=== PATIENT | female | born 2000 | race Caucasian/White ===

== ENCOUNTER 2022-02-04 11:21 | Emergency (ER) | payer BC, SELFPAY ==
[2022-02-04 11:30] VITALS: BP 154/70; PULSE 97; RESP 18; TEMP 36.7; O2SAT 100
--- NOTE | 2022-02-04 12:06 | ED.NAVMDI ---
HPI - Nausea/Vomiting/Diarrhea General Chief complaint: Nausea/Vomiting/Diarrhea Stated complaint: abd n/v/d Time Seen by Provider: 02/04/22 12:06 Source: patient and RN notes reviewed Mode of arrival: ambulatory Limitations: no limitations History of Present Illness HPI Narrative: 21-year-old female presents to the [facility] with complaints of generalized abdominal pain, nausea, vomiting for 1 week. Patient states she has a history of chronic nausea but usually Zofran works. In states that she has been vomiting and unable to keep water down for the last week. States that she feels dehydrated and thinks she needs IV fluids. Related Data Home Medications Medication Instructions Recorded Confirmed buspirone 10 mg tablet mg 02/04/22 buspirone 30 mg tablet mg 02/04/22 escitalopram oxalate 20 mg tablet mg 02/04/22 losartan 25 mg tablet mg 02/04/22 lurasidone 20 mg tablet (Latuda) mg 02/04/22 lurasidone 80 mg tablet (Latuda) mg 02/04/22 mometasone-formoterol HFA 100 inhalation 02/04/22 mcg-5 mcg/actuation aerosol inhaler (Dulera) ondansetron HCl 8 mg tablet 8 mg PO Q12H PRN Abdominal 02/04/22 02/04/22 Discomfort quetiapine 150 mg tablet,extended mg PO 02/04/22 release 24 hr trazodone 100 mg tablet mg 02/04/22 Allergies Allergy/AdvReac Type Severity Reaction Status Date / Time No Known Allergies Allergy Unverified 01/09/18 13:44 Review of Systems Review of Systems: All systems reviewed & are unremarkable except as noted in HPI and below Constitutional: Constitutional: Reports no additional constitutional complaints, Denies chills and Denies fever(s) Eyes: Eyes: Reports no additional eye complaints ENT: Reports system reviewed and no additional complaints, except as documented Cardiovascular: Cardiovascular: Reports no additional cardiovascular complaints Respiratory: Respiratory: Reports no additional respiratory complaints Gastrointestinal: Gastrointestinal: Reports as per HPI, Reports abdominal pain, Reports diarrhea, Reports nausea and Reports vomiting Musculoskeletal: Musculoskeletal: Reports no additional musculoskeletal complaints Integumentary/Breasts: Skin/Breast: Reports system reviewed and no additional complaints, except as docu Neurologic: Reports system reviewed and no additional complaints, except as documented Psychiatric: Psychiatric: Reports no additional psychiatric complaints Allergic/Immunologic: Allergic/Immunologic: Reports no additional allergic/immunologic complaints [facility] Past Medical History Medical History (Updated 02/04/22 @ 20:38 by Alis Gibson APRN) Anxiety and depression Comments At the time of my signature, I reviewed and agree with the nursing past medical, surgical, social, and family history. There is no relevant family history pertinent to the patient complaint. Exam Const: General: healthy appearing, no acute distress, alert and well nourished Nutritional Appearance: well nourished and obese morbidly obese Orientation/consciousness: patient oriented x3 Limitations: no limitations HENMT: Head: normal to inspection Ears: external ears normal, TM's normal bilaterally and EAC's normal Face/Nose/Sinus: Normal external nose present and Normal nares present Mouth: Yes Normal oral and palatal mucosa present, Yes lip normal and Yes moist mucous membranes Throat: posterior oropharynx normal and uvula midline Eyes: General: appearance normal, both eyes and all related structures Conjunctivae: conjunctivae normal Pupils: Equal, round and reactive pupils present Neck: Neck: normal visual inspection, no lymphadenopathy and no meningeal signs Chest: Chest palpation & inspection: normal inspection of the chest Resp: Effort & Inspection: normal respiratory effort and no use of accessory muscles Auscultation: clear to auscultation bilaterally, no crackles, no rales, no rhonchi and no wheezes Cardio: Rate: regular rate Rhythm: regular rhythm GI:
--- NOTE | 2022-02-04 12:18 | PC.NURSE ---
Attempt to lucy report, no pick up man
== END 2022-02-04 12:21 | disposition short-term general hospital (02) ==
LOC: EXPCOLL 11:24
PROVIDERS: Emergency Provider Nurse Practitioner
DX: R11.2 Nausea with vomiting, unspecified (principal); R19.7 Diarrhea, unspecified
CPT/HCPCS: 99212; G0463

== ENCOUNTER 2022-02-04 12:31 | Emergency (ER) | payer BC, SELFPAY ==
--- NOTE | ~2022-02-04 | CT_ITS ---
EXAMINATION: CT abdomen pelvis w con DATE: 02/04/2022 15:13 INDICATION: Umbilical abdominal pain TECHNIQUE: Computed tomography (CT) of the abdomen and pelvis was performed with 100 cc Omnipaque 350 intravenous contrast. The dose-length product was 1616.53 mGy-cm. Automated exposure control and ite rative reconstruction technique were employed. COMPARISON: No prior studies for comparison. FINDINGS: Lung bases are unremarkable. Heart size normal. No significant pleural or pericardial effus ion. No significant vascular abnormality. No lymphadenopathy. Fatty infiltration of the liver. The spleen, pancreas, adrenal glands and kidneys are unremarkable. N onobstructive bowel pattern. No free air or free fluid. Gallbladder is present. No evidence for diver ticulitis or appendicitis. No acute osseous abnormality. Normal appendix. No abnormal pelvic masses o r fluid collections. IMPRESSION: 1. No acute abdominal abnormality. Reviewed, dictated and finalized at location B.
[2022-02-04 12:34] VITALS: BP 153/80; PULSE 93; RESP 14; TEMP 36.3; O2SAT 99
[2022-02-04 13:20] LABS: Basophils Percent Auto 0.3 % (0.2-1.2); Eosinophils Absolute Auto 0.1 K/mm3 (0-0.3); Eosinophils Percent Auto 0.8 % (0-4.4); Hematocrit 34.3 % (37.0-47.0); Hemoglobin 10.6 g/dL (12.0-15.0); Immature Granulocyte Absolute 0.04 K/mm3 (0.00-0.031); Immature Granulocyte Percent A 0.4 % (0-0.5); Lymphocytes Absolute Auto 3.01 K/mm3 (0.9-3.2); Lymphocytes Percent Auto 27.9 % (18.3-44.2); Mean Corpuscular HGB Conc 30.9 g/dl (32-36); Mean Corpuscular Hemoglobin 22.9 pg (26-34); Mean Corpuscular Volume 74.2 fl (80-100); Mean Platelet Volume 11.2 fl (7.4-10.4); Monocytes Absolute Auto 0.4 K/mm3 (0.1-0.6); Neutrophils Absolute Auto 7.2 K/mm3 (1.3-6.7); Neutrophils Percent Auto 66.6 % (45.5-73.1); Platelet Count Result 356 k/mm3 (150-375); Red Blood Count 4.62 M/mm3 (4.2-5.4); Red Cell Distribution Width 17.5 % (11.5-14.5); White Blood Count 10.8 K/mm3 (4.5-10.0)
[2022-02-04 13:31] LABS: Alanine Aminotransferase 26 U/L (6-35); Albumin Level 4.5 g/dL (3.5-5.1); Alkaline Phosphatase 91 U/L (38-126); Anion Gap 9 mmol/L (8-16); Aspartate Amino Transferase 29 U/L (14-36); Bilirubin,Total 0.4 mg/dL (0.2-1.3); Blood Urea Nitrogen 10 mg/dL (7-17); Calcium 9.1 mg/dL (8.4-10.2); Carbon Dioxide 24 mmol/L (22-30); Chloride 104 mmol/L (98-107); Estimated CRCL calculation 168 ml/min; Estimated Glomerular Filt Rate > 60; Glucose 107 mg/dL (65-110); Lipase 112 U/L (23-300); Potassium 4.3 mmol/L (3.4-5.0); Sodium 137 mmol/L (137-145)
[2022-02-04 13:32] LABS: Appearance Urine Slightly Cloudy (Clear); Bilirubin Urine Negative (Negative); Blood Urine Negative (Negative); Color Urine Light Yellow (Yellow); Glucose Urine UA Negative (Negative); Ketones Urine Negative (Negative); Leukocyte Esterase Ur 1+ LEU/UL (Negative); Nitrate Urine Negative (Negative); Protein Urine Negative (Negative); Specific Grav Ur 1.015 (1.001-1.035); Urobilinogen Urine 0.2 mg/dL (<2.0); pH Urine 6.5 (5.0-9.0)
[2022-02-04 13:36] LABS: Bacteria Urine Trace /hpf; Mucus Urine Rare /lpf; RBC Urine 0-2 /hpf (0-2); Squamous Epithelial Cell Urine Many /hpf (Few); WBC Urine 0-3 /hpf
[2022-02-04 13:47] LABS: Add Urine Microscopic? YES
[2022-02-04 14:02] LABS: Anisocytosis 1+ (NORMAL); Hypochromasia 1+ (NORMAL); Platelet Estimate Adequate (Adequate); Poikilocytosis 1+ (NORMAL); Schistocytes None Seen (NORMAL)
--- NOTE | 2022-02-04 14:33 | ED.ABDPAIN ---
HPI - Abdominal Pain General Chief Complaint: Abdominal Pain Stated Complaint: N/V/D, abd pain Time Seen by Provider: 02/04/22 13:56 History of Present Illness HPI narrative: 21-year-old female history of hypertension, IBS and heavy THC use presents to the emergency room for upper abdominal pain, nausea vomiting and diarrhea x1 week. Patient states she regularly takes Zofran for her nausea. Reports is able to keep fluids down and urinate on a regular basis. States diarrhea began this morning. Relates that the upper abdominal pain might be due to the multiple episodes of nonbilious and nonbloody vomiting. Denies fevers. Related Data Home Medications Medication Instructions Recorded Confirmed buspirone 10 mg tablet mg 02/04/22 buspirone 30 mg tablet mg 02/04/22 escitalopram oxalate 20 mg tablet mg 02/04/22 losartan 25 mg tablet mg 02/04/22 lurasidone 20 mg tablet (Latuda) mg 02/04/22 lurasidone 80 mg tablet (Latuda) mg 02/04/22 mometasone-formoterol HFA 100 inhalation 02/04/22 mcg-5 mcg/actuation aerosol inhaler (Dulera) ondansetron HCl 8 mg tablet 8 mg PO Q12H PRN Abdominal 02/04/22 02/04/22 Discomfort quetiapine 150 mg tablet,extended mg PO 02/04/22 release 24 hr trazodone 100 mg tablet mg 02/04/22 Allergies Allergy/AdvReac Type Severity Reaction Status Date / Time No Known Allergies Allergy Unverified 01/09/18 13:44 Review of Systems Review of Systems: CONSTITUTIONAL: Denies fever, chills, or sweats. EYES: Denies visual changes, redness, or discharge. ENT: Denies rhinorrhea, congestion, sore throat, or otalgia. CARDIOVASCULAR: Denies chest pain, palpitations, or edema. RESPIRATORY: Denies cough or dyspnea. GASTROINTESTINAL: Reports abdominal pain, nausea, vomiting, and diarrhea. GENITOURINARY: Denies dysuria or hematuria. SKIN: Denies rash or itching. MUSCULOSKELETAL: Denies back pain, joint pain, or myalgia. NEUROLOGIC: Denies headache, numbness, dizziness, or weakness. PSYCHIATRIC: Denies anxiety or depression. Exam Narrative: GENERAL: Well-appearing, well-nourished, no physical limitations, and in no acute distress. HEAD: Normocephalic, atraumatic. EYES: Conjunctivae normal, PERRLA and EOMI. CHEST: Clear to auscultation. No respiratory distress. No wheezes rales or rhonchi. HEART: Regular rate and rhythm. No murmur heard. Normal peripheral pulses. ABDOMEN: Soft, nontender, morbidly obese, nondistended, normal active bowel sounds. BACK: No CVA tenderness EXTREMITIES: Normal range of motion. No edema. No clubbing or cyanosis SKIN: Warm, dry, no rash. No noted wounds NEURO: No focal deficits. Alert and oriented x3. MAEW. CN's II-XI intact bilaterally, normal gait PSYCH: Cooperative. Normal mood and affect. Course Vital Signs Vital signs: Vital Signs Temperature 36.3 C L 02/04/22 12:34 Pulse Rate 93 02/04/22 12:34 Respiratory Rate 14 02/04/22 12:34 Blood Pressure 153/80 H 02/04/22 12:34 Pulse Oximetry 99 02/04/22 12:34 Oxygen Delivery Room Air 02/04/22 12:34 Temperature 36.3 C L 02/04/22 12:34 Pulse Rate 93 02/04/22 12:34 Respiratory Rate 14 02/04/22 12:34 Blood Pressure 153/80 H 02/04/22 12:34 Pulse Oximetry 99 02/04/22 12:34 Oxygen Delivery Room Air 02/04/22 12:34 MDM - Abdominal Pain Lab Data Result diagrams: 02/04/22 13:10 02/04/22 13:10 Labs: Lab Results 02/04/22 02/04/22 02/04/22 Range/Units 13:09 13:10 13:10 WBC 10.8 H (4.5-10.0) K/mm3 RBC 4.62 (4.2-5.4) M/mm3 Hgb 10.6 L (12.0-15.0) g/dL Hct 34.3 L (37.0-47.0) % MCV 74.2 L (80-100) fl MCH 22.9 L (26-34) pg MCHC 30.9 L (32-36) g/dl RDW 17.5 H (11.5-14.5) % Plt Count 356 (150-375) k/mm3 MPV 11.2 H (7.4-10.4) fl Immature Gran % (Auto) 0.4 (0-0.5) % Neut % (Auto) 66.6 (45.5-73.1) % Lymph % (Auto) 27.9 (18.3-44.2) % [place] % (Auto) 4.0 (2.6-8.5) % Eos % (Auto) 0.8 (0-4
[2022-02-04] MEDS: DICYCLOMINE HCL INJ 20 MG/2 ML VIAL IM (14:48)
[2022-02-04] MEDS: PANTOPRAZOLE SODIUM IV 40 MG VIAL IV PUSH (14:52)
[2022-02-04] MEDS: SODIUM CHLORIDE 0.9% IV 1,000 ML 999 ML IV CONT (14:52)
[2022-02-04] MEDS: ONDANSETRON INJ 4 MG/2 ML VIAL IV PUSH (14:52)
[2022-02-04 16:38] VITALS: BP 160/99; PULSE 92; RESP 16; TEMP 36.8; O2SAT 99
== END 2022-02-04 16:39 | disposition home or self-care (01) ==
PROVIDERS: Emergency Medicine; Emergency Provider Nurse Practitioner Family
DX: K52.9 Noninfective gastroenteritis and colitis, unspecified (principal)
CPT/HCPCS: 36415; 74177; 80053; 81001; 81025; 83690; 85025; 96361; 96372; 96374; 96375; 99284; C9113; J0500; J2405; J7030; Q9967

== ENCOUNTER 2023-10-24 06:21 | Emergency (ER) | payer BC, SELFPAY ==
--- NOTE | ~2023-10-24 | XR_ITS ---
Clinical Indication: Chest pain PA and lateral views of the chest: Comparison: None Findings: The lungs are clear, without evidence of focal consolidation or pleural effusion. Cardiome diastinal silhouette is within normal limits. Bones and soft tissues are unremarkable. Impression: Normal chest. Reviewed, dictated and finalized at location . Impression: Normal chest.
--- NOTE | 2023-10-24 06:24 | ECG_ITS ---
Test Date: 2023-10-24 07:15:01 Measurements Intervals [place] Rate: 75 P: 15 [place]: 165 QRS: 5 QRSD: 105 T: 16 QT: 346 QTc: 386 Interpretive Statements SINUS RHYTHM VOLTAGE CRITERIA FOR LLEFT VENTRICULAR HYPERTROPHY INFERIOR INFARCT, AGE INDETERMINATE ABNORMAL ECG No previous ECG available for comparison Electronically Signed On 10-24-2023 11:52:21 CDT by Rosales Klein D.O.
[2023-10-24 06:25] VITALS: BP 123/94; PULSE 88; RESP 21; TEMP 36.4; O2SAT 95
[2023-10-24 06:33] VITALS: PULSE 88; O2SAT 95
[2023-10-24] MEDS: ASPIRIN 81 MG CHEWABLE TABLET 324 MG PO (06:53)
[2023-10-24 06:54] LABS: Basophils Absolute Auto 0.1 K/mm3 (0.0-0.1); Basophils Percent Auto 0.5 % (0.2-1.2); Eosinophils Absolute Auto 0.1 K/mm3 (0-0.3); Eosinophils Percent Auto 0.8 % (0-4.4); Hematocrit 39.2 % (37.0-47.0); Hemoglobin 12.1 g/dL (12.0-15.0); Immature Granulocyte Absolute 0.04 K/mm3 (0.00-0.031); Immature Granulocyte Percent A 0.4 % (0-0.5); Lymphocytes Absolute Auto 3.13 K/mm3 (0.9-3.2); Lymphocytes Percent Auto 29.5 % (18.3-44.2); Mean Corpuscular HGB Conc 30.9 g/dl (32-36); Mean Corpuscular Hemoglobin 25.1 pg (26-34); Mean Corpuscular Volume 81.3 fl (80-100); Mean Platelet Volume 11.7 fl (7.4-10.4); Monocytes Absolute Auto 0.7 K/mm3 (0.1-0.6); Monocytes Percent Auto 6.4 % (2.6-8.5); Neutrophils Absolute Auto 6.6 K/mm3 (1.3-6.7); Neutrophils Percent Auto 62.4 % (45.5-73.1); Platelet Count Result 302 k/mm3 (150-375); Red Blood Count 4.82 M/mm3 (4.2-5.4); Red Cell Distribution Width 15.3 % (11.5-14.5); White Blood Count 10.6 K/mm3 (4.5-10.0)
[2023-10-24 07:00] LABS: Prothrombin Time 13.5 Seconds (11.1-14.7)
[2023-10-24 07:02] LABS: Alanine Aminotransferase 23 U/L (6-35); Albumin Level 4.6 g/dL (3.5-5.1); Alkaline Phosphatase 84 U/L (38-126); Anion Gap 12 mmol/L (4-12); Aspartate Amino Transferase 26 U/L (14-36); Bilirubin,Total 0.5 mg/dL (0.2-1.3); Blood Urea Nitrogen 20 mg/dL (7-17); Calcium 8.9 mg/dL (8.4-10.2); Carbon Dioxide 27 mmol/L (22-30); Chloride 94 mmol/L (98-107); Estimated CRCL calculation 123 ml/min; Estimated Glomerular Filt Rate > 60; Glucose 93 mg/dL (65-110); Lipase 109 U/L (23-300); Partial Thromboplastin Time 30.9 Seconds (22.3-36.8); Potassium 3.5 mmol/L (3.4-5.0); Sodium 133 mmol/L (137-145)
[2023-10-24 07:13] LABS: Troponin I < 0.012 ng/mL (0.000-0.034)
--- NOTE | 2023-10-24 07:22 | ED.GENADULT ---
HPI - General Adult General Chief complaint: Chest Pain Stated complaint: CP, abnormal weight loss , multicolored vomit Time Seen by Provider: 10/24/23 06:42 History of Present Illness HPI narrative: This is a 22-year-old female history of psychiatric illness presenting for nausea vomiting diarrhea. She was recently admitted at [facility]. While there she developed nausea vomiting diarrhea. Symptoms have persisted and now she is complaining 15 lb weight loss. She says she weighed in at [place] at 407 lb is now down to 386. Patient also developed sharp chest pain that she says is relieved by vomiting. She does not have fevers chills shortness of breath or abdominal pain. Diarrhea is nonbloody Related Data Home Medications Medication Instructions Recorded Confirmed buspirone 10 mg tablet mg 02/04/22 buspirone 30 mg tablet mg 02/04/22 escitalopram oxalate 20 mg tablet mg 02/04/22 losartan 25 mg tablet mg 02/04/22 lurasidone 20 mg tablet (Latuda) mg 02/04/22 lurasidone 80 mg tablet (Latuda) mg 02/04/22 mometasone-formoterol HFA 100 inhalation 02/04/22 mcg-5 mcg/actuation aerosol inhaler (Dulera) ondansetron HCl 8 mg tablet 8 mg PO Q12H PRN Abdominal 02/04/22 02/04/22 Discomfort quetiapine 150 mg tablet,extended mg PO 02/04/22 release 24 hr trazodone 100 mg tablet mg 02/04/22 Allergies Allergy/AdvReac Type Severity Reaction Status Date / Time No Known Allergies Allergy Unverified 01/09/18 13:44 [facility] Past Medical History Medical History Anxiety and depression Exam Narrative: APPEARANCE: No apparent distress. Nontoxic Head: atraumatic. EYES: EOMI, NOSE: Atraumatic NECK: Trachea midline RESPIRATORY: No increased rate of breathing, clear to auscultation CARDIOVASCULAR: RRR, no peripheral edema, reproducible central chest tenderness to palpation ABDOMINAL: Mild tenderness in the epigastric area with no guarding or rebound. Exam is severely limited by body habitus MUSCULOSKELETAl: No obvious deformities NEURO: Alert. Moving 4/4 extremities SKIN:: Warm, dry. Normal color PSYCHIATRIC: Normal affect Course Vital Signs Vital signs: Vital Signs Temperature 97.6 F 07/16/24 06:25 Pulse Rate 88 10/24/23 06:25 Respiratory Rate 21 H 10/24/23 06:25 Blood Pressure 123/94 H 10/24/23 06:25 Pulse Oximetry 95 10/24/23 06:25 Oxygen Delivery Room Air 10/24/23 06:25 Temperature 97.6 F 10/24/23 06:25 Pulse Rate 83 10/24/23 07:44 Respiratory Rate 24 H 10/24/23 07:44 Blood Pressure 116/63 10/24/23 07:44 Pulse Oximetry 100 10/24/23 07:44 Oxygen Delivery Room Air 10/24/23 06:33 Medical Decision Making MDM Narrative Medical decision making narrative: -Course: 22-year-old female presenting with nausea vomiting diarrhea times several days. labs significant for a minor bump creatinine. Patient is given fluid resuscitation here in the ED. The rest of her laboratory studies, viral swabs chest x-ray and EKG were unremarkable. Patient's chest pain is related to vomiting. No concern for cardiopulmonary pathology or boerhave's syndrome. Patient was re-evaluated and is now tolerating p.o.. Vital signs are stable and abdominal exam is benign. She will be discharged on Zofran. given return precautions. PCP f/u -DDX includes but is not limited to: Gastroenteritis, Boerhaave syndrome, Zaida-Mendoza tear viral syndrome, -Co-morbidities complicating care: Psychiatric illness, morbid obesity -Independent interpretation of studies: Labs reviewed Significant for slight bump creatinine Viral swabs negative. Chest x-ray negative. Independent EKG interpretation: Rhythm [sinus], Rate [75], [place] -[normal], [place] -[normal], QRS [narrow], QTC [normal], T waves -[negative for concerning inversions], ST Segments - [Negative for concerning elevations] Final interpretations: [Normal Sinus Rhythm] -Interventions: 2
[2023-10-24] MEDS: PANTOPRAZOLE SODIUM IV 40 MG VIAL IV PUSH (07:37)
[2023-10-24] MEDS: ONDANSETRON INJ 4 MG/2 ML VIAL IV PUSH (07:41)
[2023-10-24] MEDS: SODIUM CHLORIDE 0.9% IV 2,000 ML 999 ML IV CONT (07:42)
[2023-10-24 07:44] VITALS: BP 116/63; PULSE 83; RESP 24; O2SAT 100
[2023-10-24 08:16] LABS: Influenza A QL RT-PCR Negative (Negative); Influenza B QL RT-PCR Negative (Negative); RSV RNA, RT-PCR Negative (Negative); SARS-CoV-2 RNA PCR Negative (Negative)
[2023-10-24] MEDS: KETOROLAC 15 MG/ML VIAL (*BKC) IV PUSH (08:43)
[2023-10-24 09:25] VITALS: BP 154/88; PULSE 92; RESP 21; TEMP 36.6; O2SAT 100
== END 2023-10-24 09:27 | disposition home or self-care (01) ==
PROVIDERS: Emergency Medicine; Emergency Provider Emergency Medicine; PCP Family Medicine
DX: K52.9 Noninfective gastroenteritis and colitis, unspecified (principal); E86.0 Dehydration; Z20.822 Contact with and (suspected) exposure to COVID-19; F41.9 Anxiety disorder, unspecified; F32.A Depression, unspecified
CPT/HCPCS: 36415; 71046; 80053; 83690; 84484; 85025; 85610; 85730; 87637; 93005; 96361; 96374; 96375; 99284; A9270; J1885; J2405; J2470; J7030

== ENCOUNTER 2023-12-14 23:12 | Emergency (ER) | payer BC, SELFPAY ==
[2023-12-14 23:26] VITALS: BP 163/110; PULSE 89; RESP 18; TEMP 36.4; O2SAT 100
[2023-12-15 00:05] LABS: Strep Group A RT-PCR DETECTED (Negative)
[2023-12-15 00:20] LABS: Influenza A QL RT-PCR Negative (Negative); Influenza B QL RT-PCR Negative (Negative); RSV RNA, RT-PCR Negative (Negative); SARS-CoV-2 RNA PCR Negative (Negative)
[2023-12-15 00:42] VITALS: O2SAT 98
--- NOTE | 2023-12-15 00:54 | ED.GENADULT ---
HPI - General Adult General Chief complaint: Upper Respiratory Infection Stated complaint: sore throat, chills, body aches, since 12/12 Time Seen by Provider: 12/15/23 00:42 History of Present Illness HPI narrative: 23-year-old female presents emergency department for evaluation of cough congestion and sore throat. Patient states symptoms have been ongoing for the last 2 weeks. Related Data Home Medications Medication Instructions Recorded Confirmed buspirone 10 mg tablet mg 02/04/22 buspirone 30 mg tablet mg 02/04/22 escitalopram oxalate 20 mg tablet mg 02/04/22 losartan 25 mg tablet mg 02/04/22 lurasidone 20 mg tablet (Latuda) mg 02/04/22 lurasidone 80 mg tablet (Latuda) mg 02/04/22 mometasone-formoterol HFA 100 inhalation 02/04/22 mcg-5 mcg/actuation aerosol inhaler (Dulera) ondansetron HCl 8 mg tablet 8 mg PO Q12H PRN Abdominal 02/04/22 02/04/22 Discomfort quetiapine 150 mg tablet,extended mg PO 02/04/22 release 24 hr trazodone 100 mg tablet mg 02/04/22 Allergies Allergy/AdvReac Type Severity Reaction Status Date / Time Penicillins Allergy Anaphylaxis Verified 12/14/23 22:54 Review of Systems Review of Systems: All systems reviewed & are unremarkable except as noted in HPI and below PMFSH Past Medical History Medical History Anxiety and depression Exam Narrative: APPEARANCE: Well appearing, no pain, no distress, well-nourished. HEAD: normocephalic, atraumatic. EYES: PERRLA/EOMI, conjunctivae clear. NOSE: Normal no drainage EARS:TMS clear with good light reflex. THROAT: Pharynx clear, no exudate. NECK: Supple. No adenopathy, no masses. RESPIRATORY: Airway patent, respirations nonlabored. Clear to auscultation bilaterally, no rales, rhonchi, wheezing. CARDIOVASCULAR: Regular rate and rhythm without murmurs rubs or gallops. ABDOMINAL: Soft, nontender, nondistended, normal bowel sounds MUSCULOSKELETAL: Moves all extremities. Strength/ROM intact, No edema, No calf tenderness. NEURO: Alert. Cranial nerves II through XII intact. Grossly intact SKIN: Warm, dry. Normal Color Course Vital Signs Vital signs: Vital Signs Temperature 97.6 F 12/14/23 23:26 Pulse Rate 89 12/14/23 23:26 Respiratory Rate 18 12/14/23 23:26 Blood Pressure 163/110 H 12/14/23 23:26 Pulse Oximetry 100 12/14/23 23:26 Oxygen Delivery Room Air 12/14/23 23:26 Temperature 97.6 F 12/14/23 23:26 Pulse Rate 85 12/15/23 01:32 Respiratory Rate 16 12/15/23 01:32 Blood Pressure 130/81 12/15/23 01:32 Pulse Oximetry 100 12/15/23 01:32 Oxygen Delivery Room Air 12/15/23 00:42 Medical Decision Making MDM Narrative Medical decision making narrative: 23-year-old female presents emergency department for evaluation of sore throat. Patient was positive for strep throat. Patient has had cough and congestion for the last 2 weeks. Patient will be started on Augmentin for the strep throat but also have azithromycin for possible pneumonia. Differential Diagnosis Differential Diagnosis: Strep throat, pneumonia, influenza, COVID, RSV Vital Signs Vital Signs: Vital Signs Temperature 97.6 F 12/14/23 23:26 Pulse Rate 89 12/14/23 23:26 Respiratory Rate 18 12/14/23 23:26 Blood Pressure 163/110 H 12/14/23 23:26 Pulse Oximetry 100 12/14/23 23:26 Oxygen Delivery Room Air 12/14/23 23:26 Temperature 97.6 F 12/14/23 23:26 Pulse Rate 85 12/15/23 01:32 Respiratory Rate 16 12/15/23 01:32 Blood Pressure 130/81 12/15/23 01:32 Pulse Oximetry 100 12/15/23 01:32 Oxygen Delivery Room Air 12/15/23 00:42 Lab Data Lab results reviewed: Yes I reviewed the patient's lab results. Labs: Lab Results 12/14/23 12/14/23 Range/Units 23:36 23:37 Influenza A (RT-PCR) Negative (Negative) Influenza B (RT-PCR) Negative (Negative) RSV (RT-PCR) Negative (Negative) SARS-CoV-2 RNA
[2023-12-15] MEDS: AZITHROMYCIN 250 MG TABLET 500 MG PO (01:26)
[2023-12-15 01:32] VITALS: BP 130/81; PULSE 85; RESP 16; O2SAT 100
== END 2023-12-15 01:34 | disposition home or self-care (01) ==
PROVIDERS: Emergency Provider Emergency Medicine; PCP Internal Medicine Gastroenterology
DX: J02.0 Streptococcal pharyngitis (principal); Z20.822 Contact with and (suspected) exposure to COVID-19; F41.8 Other specified anxiety disorders
CPT/HCPCS: 87637; 87651; 99283; A9270

== ENCOUNTER 2024-12-02 09:42 | Emergency (ER) | payer BC, SELFPAY ==
--- OUTSIDE RECORDS SUMMARY | 2024-11-05 05:00 | XMS_ITS ---
Author Organization [facility] Address [address] [place] [id number] Care Team Providers Care Shampooer Name Role Phone Yamilex Pacheco Primary Care Provider REASON FOR VISIT AWV/ pap Encounters Encounter Location Date Provider Diagnosis [facility] [address] [place] [id number] 11/05/2024 Yamilex Pacheco Plan Of Treatment No Information Progress Notes * Shannon ODONNELL LDOB:[birth year] (23 yo F)Acc No.[id number]:11/05/2024 UNLOCKED PROGRESS NOTE Progress Notes Patient: Shannon Burnett Provider: Misty Pacheco PA-C :2000 A ge:23 Y S ex:Female Date:11/05/2024 Address:[address] [place], [place] [id number] Subjective: * Chief Complaints: * A [place]/ pap * Electronic signature of Lucy Pacheco PA-C on 12/02/2024 at 10:28 AM CDT Sign off status: Pending Visit Status: N /S (No-Show) * Provider: Misty Pacheco PA-C Date: 0 11/05/2024 Generated for Printi ng/Faxing/eTransmitting on: 12/02/2024 10:28 AM CDT
[2024-12-02] VITALS (9 sets, daily range): BP systolic 128–175; BP diastolic 46–123; PULSE 54–91; RESP 12–21; TEMP 36.4; O2SAT 100
--- NOTE | ~2024-12-02 | XR_ITS ---
EXAMINATION: XR chest 2V 12/02/2024 11:39 INDICATION: Chest pain TECHNIQUE:Frontal and lateral images of the chest were obtained COMPARISON: 10/24/2023 FINDINGS: The lungs are clear. The cardiomediastinal silhouette is within normal limits. There are no pleural effusions. There is no pneumothorax suspected. IMPRESSION: 1: NO ACUTE CARDIOPULMONARY DISEASE. Reviewed, dictated and finalized at location Q.
--- NOTE | 2024-12-02 10:27 | PC.NURSE ---
ice pack given out in triage for comfort
--- OUTSIDE RECORDS SUMMARY | 2024-12-02 10:27 | XMS_ITS | Clinical Summary ---
Author Organization [facility] Address [address] [place] [address] Care Team Providers Care Escrow Assistant Name Role Phone Yamilex Pacheco Primary Care Provider Jocelyn Banks MD Unavailable [phone] Allergies Active Allergy Reactions Criticality Noted Date Comments Penicillins Anaphylaxis High 10/25/2023 Medications metoclopramide (REGLAN) 10 mg tabletIndicati ons:Acute viral syndrome Take 1 tablet (10 mg total) by mouth 3 (three) times a day as needed (PRN nausea and abdominal cramps.) Collaborating physician Jose Garduno MD 20 tablet 4 Active acetaminophen- codeine (TYLENOL with CODEINE #3) 300-30 mg per tabletIndicati ons:Acute viral syndrome Take 1 tablet by mouth every 6 (six) hours as needed for pain Collaborating physician Jose Garduno MD 15 tablet 4 Active meclizine (ANTIVERT) 25 mg tabletIndicati ons:Acute viral syndrome,Dizzi ness Take 1 tablet (25 mg total) by mouth 3 (three) times a day as needed for dizziness or nausea Collaborating physician Jose Garduno MD 20 tablet 4 Active Active Problems Problem Noted Date Diagnosed Date Acute viral syndrome 10/25/2023 Dizziness 10/25/2023 Resolved Problems Problem Noted Date Diagnosed Date Resolved Date Right corneal abrasion 10/25/202310/24 Tachycardia 10/25/2023 10/25/2023 Immunizations Immunization Administration Dates Next Due Moderna SARS-CoV-2 Monovalen t Vaccination (12+ YRS) 09/08/2021,06/30/2021,10/30/2020,2020 Social History Tobacco Use Types Packs/Day Years Used Date Smoking Tobacco: Never Assessed Personal Safety Answer Date Recorded Have you ever been in or are you currently in a harmful physical or emotional relationship or is someone making you feel afraid or unsafe? Denies 10/25/2023 Comments No Sex and Gender Information Value Date Recorded Sex Assigned at Not on file Legal Sex Female 1:53 PM [employer] Gender Identity Not on file Sexual Orientation Not on file Obstetrics History Last Filed Vital Signs Vital Sign Reading Time Taken Comments Blood Pressure 140/86 10/25/2023 4:30 PM CDT Pulse 58 10/25/2023 4:30 PM CDT Temperature 36.5 C (97.7 F) 10/25/2023 11:00 AM CDT Respiratory Rate 16 10/25/2023 11:00 AM CDT Oxygen Saturation 97% 10/25/2023 4:30 PM CDT Inhaled Oxygen Concentration - - Weight 163.3 kg (360 lb) 10/25/2023 11:00 AM CDT Height 177.8 cm (5' 10) 10/25/2023 11:00 AM CDT Body Mass Index 51.65 10/25/2023 11:00 AM CDT Plan of Treatment Health Maintenance Due Date Last Done Comments Cervical Cancer Screening 2000 Depression Screening 2000 Hepatitis C Screening 2000 Regular Well Visit/Exam 18-64 2016 DTaP/Tdap/Td Vaccine (7 - Td or Tdap) 11/15/2020 11/15/2010, 02/16/2005, 12/27/2002, Additional history exists Covid-19 Vaccine ( season) 2023 09/08/2021, 06/30/2021, 10/30/2020, Additional history exists Influenza Vaccine (#1) 2024 , 03/08/2022, 02/23/2018, Additional history exists Hepatitis B Screening Completed 07/27/2000 , 07/22/1999, 05/26/1999, Additional history exists Varicella Vaccines Completed 07/27/2010, 0 08/29/2007, 07/27/2000 HPV Vaccines Completed 02/11/2013, 01/08, 11/15/2010 Pneumococcal vaccine <65 Aged Out No longer eligible based on patient's age to complete this topic Insurance [facility] Care Teams Escrow Assistant Relationship Specialty Start Date End Date Yamilex Pacheco PA PCP - General Physician Biblical Languages Professor 10/25/23 Jocelyn Banks MD [address] [place] [address] Referring Physician Gastroenterology 03/29/24
--- OUTSIDE RECORDS SUMMARY | 2024-12-02 10:28 | XMS_ITS | Patient Health Record ---
Author Organization [facility] Address [facility] [address] Care Team Providers Care Machine Builder Name Role Phone EvansquyenYamilex Primary Care Provider Allergies Allergen (clinical drug ingredient) Drug/Non Drug Allergy documented on EMR Reaction Allergy Type Onset Date Status diphenhydramine Benadryl Unknown Drug Allergy A ctive melatonin Melatonin Unknown Drug Allergy Active Reason For Referral No Information Medications Medication SIG (Take, Route, Frequency, Duration) Notes Start Date End Date Status Lisinopril 10 MG Tablet 1 tablet Orally Once a day; Duration: 90 days Not-Takin g Azithromycin 250 MG Tablet 2 tablet on the first day, then 1 tablet daily for 4 days Orally Once a day; Duration: 5 days 09/28/2023 Not-Taking predniSONE 10 MG Tablet 6 tablets day 1, 5 tablets day 2, 4 tablets day 3, 3 tablets day 4, 2 tablets day 5, 1 tablet day 6 Orally Once a day; Duration: 6 days 10/03/2023 Not-Taking predniSONE 10 MG (21) Tablet Therapy Pack as directed Orally daily; Duration: 6 days 09/28/2023 Not-Taki ng Gabapentin 100 MG Capsule 1 capsule Oral ly twice daily; Duration: 30 days 05/25/2023 Active Advair Diskus 250-50 MCG/ACT Aerosol Powder Breath Activated 1 puff Inhalation Twice a day; Duration: 30 days 09/28/2023 Active QUEtiapine Fumarate 50 MG Tablet TAKE 1 TABLET BY MOUTH DAILY AT BEDTIME; Duration: 90 Active Lisinopril-hydroCHLOROthi azide 20-12.5 MG Tablet 1 tablet Orally Once a day; Duration: 90 days Active Sucralfate 1 GM Tablet 1 tablet on an em pty stomach Orally Twice a day; Duration: 30 day(s) 10/08/2023 Active Sertraline HCl 100 MG Tablet 1 tablet Orally Once a day; Duration: 90 days Active Immunizations Vaccine Route Administration Date Status Comme nts XNon VFC Fluzone Preserv FREE 3yrs & Older Unknown 01/24/2012 Administered XNon VFC Fluzone Preserv FREE 3yrs & Older Unknown 01/07/2015 Administered KTqaanub-Tamcv-72 BOOSTER IM Intramuscular 06/30/2021 Administered x TDAP Unknown 11/15/2010 Administered X Hiberix Unknown 07/27/2000 Administered VFC Varivax Unknown 07/27/2000 Administered VFC Varivax Unknown 08/29/2007 Administered VFC Varivax Unknown 07/27/2010 Administered VFC MMR II Unknown 07/27/2000 Administered VFC MMR II Unknown 12/21/2002 Administered VFC Menveo Unknown 11/15/2010 Administered VFC Menveo Unknown 01/07/2015 Administered VFC IPV Unknown 02/24/1999 Administered VFC IPV Unknown 05/26/1999 Administered VFC IPV Unknown 07/27/2000 Administered VFC IPV Unknown 12/27/2002 Administered VFC Infanrix Unknown 02/24/1999 Administered VFC Infanrix Unknown 05/26/1999 Administered VFC Infanrix Unknown 07/22/1999 Administered VFC Infanrix Unknown 07/27/2000 Administered VFC Infanrix Unknown 12/27/2002 Administered VFC Havrix-Peds Unknown 02/16/2005 Administered VFC Havrix-Peds Unknown 08/29/2007 Administered VFC Gardasil Unknown 11/15/2010 Administered VFC Gardasil Unknown 01/24/2012 Administered VFC Gardasil Unknown 02/11/2013 Administered VFC Fluarix Quad Unknown 02/11/2013 Administered VFC Engerix B-Peds Unknown 07/27/2000 Administered VFC Comvax Unknown 02/24/1999 Administered VFC Comvax Unknown 05/26/1999 Administered VFC Comvax Unknown 07/22/1999 Administered Non VFC Fluarix Quad IM Intramuscular 03/08/2022 Administered Sanju Castillo 03/08/2022 01:39:53 PM >Patient tolerated injection well. [id number]-VWTEB-96 Vaccine IM Intramuscular 10/02/2020 Administered pt tolerated we ll Gyztkjh-NREYX-35 Vaccine IM Intramuscular 10/30/2020 Administered pt tolerated we ll Influenza (split) 3 yrs and above Unknown 02/26/2008 Administered Social History Tobacco Use: Social History Observation Description Date Details (start date - stop date) Current Smoker NA - NA Social History Social Determinants Social Info Question Answer Notes PRAPARE Date Completed/Updated: 05/12/2023 What is your current housing situation? I have h ousing Are you worried about losing your housing? No What is the highest level of school that you have finished? More than high school What is your current work situation? Unemployed and seeking work In the past year, have you o r any family members you live with been unable to get any of the following when it was really needed? Check all that apply I do not have problems meeting my needs Has lack of transportation k ept you from medical appointments, meetings, work or from getting things needed for daily living? No How often do you see or talk to people that you care about and feel close to? (For example: talking to friends on the phone, visiting friends or family, going to congregational or club meetings) More than 5 times a week How stressed are you? Stress is when someone feels tense, nervous, anxious, or cant sleep at night because their mind is troubled A little bit In the past year have you sp ent more than 2 nights in a row in a longterm, senior living, fpc center, or juvenile correctional facility? No Do you feel physically and e motionally safe where you currently live? Yes In the past year, have you b een afraid of your partner or ex-partner? No Are you a refugee? 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 Socia l Characteristics: Yes Highest level of education: GED Concerns with daily living situations: None Support from family/friends: Yes Participation in community activities: Yes at congregational Cultural Characteristics: No Communication Barriers Are: Impaired Vision, Non e Corrective Measure for Vision: Wear glasses Assessment of Health Literacy Understands how to take medication Yes Understands risks/side effects of medication Yes Understands Diagnosis and Treatment Plan Yes Is the patient able to afford their medication Y es Does patient have an Advanced Directive? No Date Last Health Assessment Completed : 09/21/19 23 Drugs/Alcohol: Social Info Question Answer Notes Alcohol Screen (Audit-C) Did you have a drink containing alcohol in the past year? No Points 0 Interpretation Negative DAST Total Score: 1 Interpretation: Low level Drugs Have you used drugs other than those for medical reasons in the past 12 months? Yes Marijuana? Yes Caffeine Intake: 3-4 cups per day Coffee, Sod a Self-Management Social Info Question Answer Notes Dental Exam Date of last dental exam: Visits dentist regularly: Yes Household: Social Info Question Answer Notes Household Marital status: single Number of adults in household: h omeless intermediate Patient is employed No Oral hygiene Poor oral hygiene DAST Form: Social Info Question Answer Notes DAST-10 (2020 Edition) 1. Have you used drugs other than those required for medical reasons? No 2. Do you abuse more than one drug at a time? No 3. Are you always able to stop using drugs when you want to? Yes 4. Have you had blackouts or flashbacks as a result of drug use? No 5. Do you ever feel bad or guilty about your tania g use? No 6. Does your spouse (or pare nts) ever complain about your involvement with drugs? No 7. Have you neglected your f amily because of your use of drugs? No 8. Have you engaged in illeg al activities in order to obtain drugs? No 9. Have you ever experienced withdrawal symptoms (felt sick) when you stopped taking drugs? No 10. Have you had medical pro blems as a result of your drug use (e.g., memory loss, hepatitis, convulsions, bleeding etc.)? No Results: 0 Interpretation of Score: No problems reported Tobacco Use: Social Info Question Answer Notes Exposed to second hand smoke Exposed to second hand smoke No Tobacco Use/Smoking Are you a current smoker Tobacco use other than smoking: Are you an other tobacco user? Yes Marijuana, Vaping Additional Details Category Social Info Options Details Self-Management Pap Testing Yes Place of [facility] t pap smear: [facility] 01/19/2021, repeat until 2023 Flu Shot No Covid-19 Vaccine Yes Moderna Dose 1 Administered, Moderna Dose 2 Administered Problems Problem Type SNOMED Code ICD Code Onset Dates Problem Status W/U Status Risk Notes Problem Essential hypertension (98859732) Essential hypertension (I10) Active confirmed Problem Insomnia (189920252) Insomnia (G47.00) Active confirmed Problem Hyperlipidemia (71351525) Hyperlipidemia (E78.5) Active confirmed Problem Anxiety (79673806) Anxiety (F41.9) Active confi rmed Problem Migraine (33705150) Migraine (G43.909) Active c onfirmed Problem Bipolar 1 disorder (502273856) Bipolar 1 disorder (F31.9) Active confirmed Problem Posttraumatic stress disorder (61846741) PTSD (post-traumatic stress disorder) (F43.10) Active confirmed Problem Constipation (54409932) Constipation, unspecified constipation type (K59.00) Active confirmed Problem Moderate recurrent major depression (96778639) Moderate episode of recurrent major depressive disorder (F33.1) Active confirmed Problem Sciatica (31189333) Low back anderson n with left-sided sciatica (M54.42) Active confirmed Problem Manic behavior (139922694) Manic behavior (F30.10) Active confirmed Problem Alcohol abuse (02152383) Alcohol abuse, unspecified (F10.10) Active confirmed Problem Menstrual periods irregular (08092932) Menstrual periods irregular (N92.6) Active confirmed Problem Manic disorder, single episode (890809647) Manic episode (F30.9) Active confirmed Problem Mild asthma (988720285) Mild asthma (J45.998) Active confirmed Problem Morbid obesity (983748387) Morbid obesity with body mass index (BMI) greater than or equal to 50 (E66.01) Active confirmed Problem Gastroesophageal reflux disease (703299742) Gastroesophageal reflux disease, unspecified whether esophagitis present (K21.9) Active confirmed Problem Post-acute COVID-19 (disorder) (9315293491) 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) Active confirmed Encounters Encounter Location Date Provider Diagnosis [facility] [address] [place] [id number] 05/31/2024 Yamilex Pacheco [facility] [address] [address] [address] [place] [address] 10/28/2024 Yamilex Lutraci Plan Of Treatment No Information Insurance Providers Payer Name Payer Address Payer Phone Subscriber Number Group Number Insured Name Patient Relationship to Insured Coverage Start Date Coverage End Date O BCBS [facility] [address] [place] [phone] [id number] Shannon Alcocer Self - patient is the insured 1 O [employer] [address] [place] [phone] [id number] 5 Shannon Alcocer Self - patient is the insured 1 O BCBS Non[place] [address] [place] [phone] [id number] 5 Shannon Alcocer Self - patient is the insured 1 O BCBS [employer] [facility] [address] [place] [address] [id number] 5 Shannon Alcocer Self - patient is the insured 4 Medications Administered Medication Instructions Date of Administration Dosage Notes Depo Provera Injection 09/20/2022 150 mg Parkerlillian LISAJean-PierreCally 09/20/2022 02:53:43 PM >Patient provided medication. [facility]: [id number] LOT: [id number] EXP: 06/07/2024 Ketorolac Injection 04/19/2021 60 mg Medical (General) History Surgical History Surgery Date(Month/Year) Gallbladder removed 02/20 Hospitalization History Reason Date(Month/Year) [facility] 02[facility]2021 [facility] 05/03 [facility] 09/2022 [facility]- Syncopal episode and head injury 03/2022 [facility]- Dehydration 02/2022
--- NOTE | 2024-12-02 10:45 | ECG_ITS ---
Test Date: 2024-12-02 11:02:36 Measurements Intervals [place] Rate: 64 P: 18 IN: 163 QRS: 13 QRSD: 94 T: 15 QT: 354 QTc: 365 Interpretive Statements SINUS RHYTHM WITH SINUS ARRHYTHMIA CONSIDER INFERIOR INFARCT, AGE INDETERMINATE ABNORMAL ECG Compared to ECG 10/24/2023 07:15:01 NO SIGNIFICANT CHANGE Electronically Signed On 12-02-2024 11:58:09 CDT by Rosales Klein D.O.
[2024-12-02 11:10] LABS: Hematocrit 37.4 % (37.0-47.0); Hemoglobin 11.4 g/dL (12.0-15.0); Immature Granulocyte Percent A 0.2 % (0-0.5); Lymphocytes Absolute Auto 2.30 K/mm3 (0.9-3.2); Mean Corpuscular HGB Conc 30.5 g/dl (32-36); Mean Corpuscular Hemoglobin 23.8 pg (26-34); Mean Corpuscular Volume 78.2 fl (80-100); Nucleated Red Blood Cells Absolute Auto 0.000 K/mm3 (0.0-0.012); Nucleated Red Blood Cells Perc 0.0 % (0.0-0.2); Platelet Count Result 302 k/mm3 (150-375); Red Blood Count 4.78 M/mm3 (4.2-5.4); White Blood Count 9.1 K/mm3 (4.5-10.0)
--- NOTE | 2024-12-02 11:24 | ED_ITS ---
HPI - Headache General Chief Complaint: Headache Stated Complaint: migraine for days, N/V Time Seen by Provider: 12/02/24 11:07 History of Present Illness HPI Narrative: 23-year-old morbidly obese female presents ER complaining of typical migraine headache. States headache began 3 days ago. States her headaches are normally Topamax and Nurtec. States the Nurtec did not alleviate her symptoms. Headache is associated with nausea/vomiting and photophobia. Related Data Home Medications ?Medication ?Instructions ?Recorded ?Confirmed ?Last Taken ?Type buspirone 10 mg tablet mg 02/04/22 Unknown History buspirone 30 mg tablet mg 02/04/22 Unknown History escitalopram oxalate 20 mg tablet mg 02/04/22 Unknown History losartan 25 mg tablet mg 02/04/22 Unknown History lurasidone 20 mg tablet (Latuda) mg 02/04/22 Unknown History lurasidone 80 mg tablet (Latuda) mg 02/04/22 Unknown History mometasone-formoterol HFA 100 inhalation 02/04/22 Unk nown History mcg-5 mcg/actuation aerosol inhaler (Dulera) ondansetron HCl 8 mg tablet 8 mg PO Q12H PRN Abdominal 02/04/22 02/04/22 Unknown History Discomfort quetiapine 150 mg tablet,extended mg PO 02/04/22 Unkn own History release 24 hr trazodone 100 mg tablet mg 02/04/22 Unknown History Allergies Allergy/AdvReac Type Severity Reaction Status Date / Time Penicillins Allergy Anaphylaxis Verified 12/02/24 09:45 Review of Systems 2 Review of Systems: All systems reviewed & are unremarkable except as noted in HPI and below PMFSH Past Medical History Medical History Anxiety and depression Exam 2 Const: General: healthy appearing, no acute distress and alert Nutritional Appearance: obese Orientation/consciousness: patient oriented x3 L imitations: no limitations HENMT: Head: normal to inspection Face and sinus: normal facial exam M outh: Yes Normal oral and palatal mucosa present Eyes: Conjunctivae: conjunctivae normal Pupils: Equal, round and reactive pupils present EOM: EOMs intact bilaterally Direct Ophthalmoscopy: p hotophobia Neck: Neck: normal visual inspection Resp: Effort & Inspection: normal respiratory effort Auscultation: clear to auscultation bilaterally Cardio: Rate: regular rate Rhythm: regular rhythm Skin: General skin exam: normal color Neuro: General: patient oriented x3, moves all extremities and CN's II-XI intact bilaterally Course Vital Signs Vital signs: Vital Signs Temperature 36.4 C 12/02/24 10:11 Pulse Rate 75 12/02/24 10:11 Respiratory Rate 16 12/02/24 10:11 Blood Pressure 131/102 H 12/02/24 10:11 Pulse Oximetry 100 12/02/24 10:11 Oxygen Delivery Room Air 12/02/24 10:11 Temperature 36.4 C 12/02/24 10:11 Pulse Rate 58 L 12/02/24 12:16 Respiratory Rate 15 12/02/24 12:16 Blood Pressure 135/46 L 12/02/24 12:16 Pulse Oximetry 100 12/02/24 12:16 Oxygen Delivery Room Air 12/02/24 10:11 MDM - Headache MDM Narrative Medical decision making narrative: In summary: 23-year-old female history of migraine headaches presents the ER with a typical migraine headache for 3 days. Patient was given migraine cocktail of with magnesium infusion. On reexamination symptoms and significantly improved. Lab work was unremarkable. Differential diagnosis includes tension headache, migraine headache, cluster headache. Patient discharged home stable condition. Lab Data 12/02/24 11:03 12/02/24 11:03 Labs: Lab Results 12/02/24 Range/Units 11:03 WBC 9.1 (4.5-10.0) K/mm3 RBC 4.78 (4.2-5.4) M/mm3 Hgb 11.4 L (12.0-15.0) g/dL Hct 37.4 (37.0-47.0) % MCV 78.2 L (80-100) fl MCH 23.8 L (26-34) pg MCHC 30.5 L (32-36) g/dl RDW 16.3 H (11.5-14.5) % Plt Count 302 (150-375) k/mm3 MPV 12.0 H (7.4-10.4) fl Immature Gran % (Auto) 0.2 (0-0.5) % Neut % (Auto) 70.7 (45.5-73.1) % Lymph % (Auto) 25.4 (18.3-44.2) % [place] % (Auto) 3.2 (2.6-8.5) % Eos % (Auto) 0.3 (0-4.4) % Baso % (Auto) 0.2 (0.2-1.2) % Lymph # (Auto) 2.30 (0.9-3.2) K/mm3 [place] # (Auto) 0.3 (0.1-0.6) K/mm3 Eos # (Auto) 0.0 (0-0.3) K/mm3 Baso # (Auto) 0.0 (0.0-0.1) K/mm3 Abs Immat Gran (auto) 0.02 (0.00-0.031) K/mm3 Absolute Neuts (auto) 6.4 (1.3-6.7) K/mm3 Absolute Nucleated RBC 0.000 (0.0-0.012) K/mm3 Nucleated RBC % 0.0 (0.0-0.2) % PT 13.1 (11.1-14.7) Seconds INR 1.0 APTT 31.3 (22.3-36.8) Seconds Sodium 140 (137-145) mmol/L Potassium 3.8 (3.4-5.0) mmol/L Chloride 108 H (98-107) mmol/L Carbon Dioxide 21 L (22-30) mmol/L Anion Gap 11 (4-12) mmol/L BUN 12 D (7-17) mg/dL Creatinine 0.72 (0.7-1.0) mg/dL Estim Creat Clear Calc 183 ml/min Estimated GFR > 60 (59 - ) Glucose 100 (65-110) mg/dL Calcium 9.4 (8.4-10.2) mg/dL Total Bilirubin 0.4 (0.2-1.3) mg/dL AST 37 H (14-36) U/L ALT 34 (6-35) U/L Alkaline Phosphatase 106 (38-126) U/L Troponin I < 0.012 (0.000-0.034) ng/mL Total Protein 8.3 H (6.3-8.2) g/dL Albumin 4.4 (3.5-5.1) g/dL Lipase 100 (23-300) U/L Discharge Plan Discharge Clinical Impression: Migraine, Headache Patient Disposition: Home Condition: Stable Instructions: Antibiotic Form, Acute Headache (ED) Patient Language: Bahraini Prescriptions: No Action trazodone 100 mg tablet buspirone 30 mg tablet buspirone 10 mg tablet losartan 25 mg tablet escitalopram oxalate 20 mg tablet quetiapine 150 mg tablet extended release 24 hr PO Dulera 100-5 mcg/actuation HFA aerosol inhaler INHALATION Latuda 80 mg tablet Latuda 20 mg tablet ondansetron HCl [Zofran] 8 mg Tablet 8 mg PO Q12H PRN (Reason: Abdominal Discomfort) dicyclomine 20 mg tablet 20 mg PO BID Qty: 14 0RF ondansetron 4 mg tablet,disintegrating 4 mg PO Q8H PRN (Reason: nausea and vomiting) Qty: 30 0RF cefpodoxime 200 mg tablet 200 mg PO BID Qty: 14 0RF Rx Instructions: must administer with a meal/food azithromycin 250 mg tablet See Rx Instructions .ROUTE .COMPLEX Qty: 6 0RF Rx Instructions: For 250 mg dose pack: take 500 mg today (day 1), then 250 mg for 4 days (days 2-5) Follow-up/Referrals: Darren,Jocelyn Sanchez MD [Non-Staff] Time of Disposition: 13:07
[2024-12-02 11:25] LABS: INR 1.0; Partial Thromboplastin Time 31.3 Seconds (22.3-36.8); Prothrombin Time 13.1 Seconds (11.1-14.7)
[2024-12-02 11:39] LABS: Troponin I < 0.012 ng/mL (0.000-0.034)
[2024-12-02] MEDS: MAGNESIUM SULF 1 GM/D5W 100 ML 1 GM/100 ML BAG IVPB (11:45)
[2024-12-02] MEDS: KETOROLAC 30 MG/ML VIAL (*BKC) IV PUSH (11:45)
[2024-12-02] MEDS: METOCLOPRAMIDE HCL INJ 10 MG/2 ML VIAL IV PUSH (11:45)
[2024-12-02 11:48] LABS: Alanine Aminotransferase 34 U/L (6-35); Albumin Level 4.4 g/dL (3.5-5.1); Alkaline Phosphatase 106 U/L (38-126); Anion Gap 11 mmol/L (4-12); Aspartate Amino Transferase 37 U/L (14-36); Bilirubin,Total 0.4 mg/dL (0.2-1.3); Blood Urea Nitrogen 12 mg/dL (7-17); Calcium 9.4 mg/dL (8.4-10.2); Carbon Dioxide 21 mmol/L (22-30); Chloride 108 mmol/L (98-107); Estimated CRCL calculation 183 ml/min; Estimated Glomerular Filt Rate > 60; Glucose 100 mg/dL (65-110); Lipase 100 U/L (23-300); Potassium 3.8 mmol/L (3.4-5.0); Sodium 140 mmol/L (137-145); Total Protein 8.3 g/dL (6.3-8.2)
--- OUTSIDE RECORDS SUMMARY | 2024-12-02 12:17 | XMS_ITS | Clinical Summary ---
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
[2024-12-02] MEDS: ONDANSETRON INJ 4 MG/2 ML VIAL IV PUSH (13:21)
== END 2024-12-02 13:34 | disposition home or self-care (01) ==
PROVIDERS: Emergency Medicine; Emergency Provider Nurse Practitioner Family; PCP Emergency Medicine
DX: G43.909 Migraine, unspecified, not intractable, without status migrainosus (principal); E66.01 Morbid (severe) obesity due to excess calories; Z68.43 Body mass index [BMI] 50.0-59.9, adult; F41.9 Anxiety disorder, unspecified; F32.A Depression, unspecified; R94.31 Abnormal electrocardiogram [ECG] [EKG]; Z79.899 Other long term (current) drug therapy
CPT/HCPCS: 36415; 71046; 80053; 83690; 84484; 85025; 85610; 85730; 93005; 96365; 96375; 99284; J1200; J1885; J2405; J2765; J3475

== ENCOUNTER 2024-12-27 15:18 | Emergency (ER) | payer BC, SELFPAY ==
--- NOTE | ~2024-12-27 | XR_ITS ---
EXAMINATION: XR foot RT min 3V, 12/27/2024 15:30 CDT HISTORY: pain for 3 days, no injury COMPARISON: No comparisons available. Findings: No acute fracture or malalignment. No significant degenerative changes. Soft tissues unremarkable. Impression: No acute fracture or malalignment. Reviewed, dictated and finalized at location A. Impression: No acute fracture or malalignment.
[2024-12-27 15:28] VITALS: BP 124/71; PULSE 95; RESP 16; TEMP 37.2; O2SAT 99
--- NOTE | 2024-12-27 16:26 | ED.LOWEXIN ---
HPI - Extremity Injury (Lower) General Chief Complaint: Extremity Injury, Lower Stated Complaint: Right Foot Pain Time Seen by Provider: 12/27/24 16:20 Source: patient and RN notes reviewed Mode of arrival: ambulatory Limitations: no limitations History of Present Illness HPI Narrative: 24-year-old female Presents Express Care complaining of right foot pain. Patient reports 4 days ago pain started after she was putting up decorations at home. Patient is complaining of pain to the distal lateral part of her foot. Patient's has been taking Tylenol or ibuprofen with some relief. Patient denies any numbness, tingling or any other injuries. Patient denies any significant past medical history. Related Data Home Medications ?Medication ?Instructions ?Recorded ?Confirmed ?Last Taken ?Type buspirone 10 mg tablet mg 02/04/22 Unknown History buspirone 30 mg tablet mg 02/04/22 Unknown History escitalopram oxalate 20 mg tablet mg 02/04/22 Unknown History losartan 25 mg tablet mg 02/04/22 Unknown History lurasidone 20 mg tablet (Latuda) mg 02/04/22 Unknown History lurasidone 80 mg tablet (Latuda) mg 02/04/22 Unknown History mometasone-formoterol HFA 100 inhalation 02/04/22 Unknown History mcg-5 mcg/actuation aerosol inhaler (Dulera) ondansetron HCl 8 mg tablet 8 mg PO Q12H PRN Abdominal 02/04/22 12/27/24 Unknown History Discomfort quetiapine 150 mg tablet,extended mg PO 02/04/22 Unknown History release 24 hr trazodone 100 mg tablet mg 02/04/22 Unknown History Allergies Allergy/AdvReac Type Severity Reaction Status Date / Time Penicillins Allergy Anaphylaxis Verified 12/27/24 15:22 Review of Systems Review of Systems: CONSTITUTIONAL: Denies fever, chills, or sweats. EYES: Denies visual changes, redness, or discharge. ENT: Denies rhinorrhea, congestion, sore throat, or otalgia. CARDIOVASCULAR: Denies chest pain, palpitations, or edema. RESPIRATORY: Denies cough or dyspnea. GASTROINTESTINAL: Denies abdominal pain, nausea, vomiting, or diarrhea. GENITOURINARY: Denies dysuria or hematuria. SKIN: Denies rash, wound, or itching. MUSCULOSKELETAL: Denies back pain, joint pain, or myalgia. Positive for right foot pain. NEUROLOGIC: Denies headache, numbness, or weakness. PSYCHIATRIC: Denies anxiety or depression. All other systems reviewed are negative, except as documented in HPI. [facility] Past Medical History Medical History Anxiety and depression Comments At the time of my signature, I reviewed and agree with the nursing past medical, surgical, social, and family history. There is no relevant family history pertinent to the patient complaint. Exam Narrative: GENERAL: This is a well-nourished, well-developed adult, in no apparent distress. They are non ill-appearing, nontoxic appearing. HEAD: normocephalic, atraumatic. EYES: Sclera clear/white. Vision is grossly intact. Conjunctiva normal. Extraocular movement intact. EARS: External ears normal Hearing grossly intact. NOSE: External nose normal THROAT: Mucous membranes moist NECK: Neck supple CARDIOVASCULAR: Regular rate and rhythm RESPIRATORY: Respiratory rate normal, respiratory effort nonlabored, no respiratory distress NEURO: awake, alert, and oriented to person, place and time. There were no obvious focal neurologic abnormalities. EXTREMITIES: Right foot: No obvious deformity, injury, swelling, bruising, redness. Normal range of motion. Mild tenderness to palpation to the dorsal and lateral forefoot. Capillary refill less than 3 seconds. Right pedal Pulse 2 +palpable. Normal sensation. Neurovascular status intact distal injury. Patient able to wiggle her toes. BACK: Nontender without deformity. Course Course Emergency Course: Portions of this record may have been created with voice recognition software Level of Care: Express Care Visit Vital Signs Vital signs: Vital Signs Temperature 98.9 F 12/27/24 15:28 Pulse Rate 95 12/27/24 15:28 Respiratory Rate 16 12/27/24 15:28 Blood Pressure 124/71 12/27/24 15:28 Pulse Oximetry 99 12/27/24 15:28 Oxygen Delivery Room Air 12/27/24 15:28 Temperature 98.9 F 12/27/24 15:28 Pulse Rate 95 12/27/24 15:28 Respiratory Rate 16 12/27/24 15:28 Blood Pressure 124/71 12/27/24 15:28 Pulse Oximetry 99 12/27/24 15:28 Oxygen Delivery Room Air 12/27/24 15:28 Reviewed MDM - Extremity Injury (Lower) MDM Narrative Medical decision making narrative: X-ray right foot is negative for any fractures or acute findings. Patient likely has a foot sprain. Patient given Marlon wrap for comfort. Discussed physical exam findings. Advised supportive measures and signs/symptoms to go to the ER. Pt is appropriate for outpt treatment and f/u. Differential Diagnosis Differential diagnosis: Likely other (Foot fracture, foot sprain, toe fracture, toe sprain, plantar fasciitis) Imaging Data Radiologist's impression: ITS Impressions Foot X-Ray 12/27/24 16:19 Impression: No acute fracture or malalignment. Critical Care Time Critical Care Time Critical Care Time: No Discharge Plan Discharge Clinical Impression: Foot pain, right Patient Disposition: Home Condition: Stable Instructions: Antibiotic Form, Arthralgia (ED) Additional Instructions: The x-ray of your right foot is negative for any fractures or acute findings. Rest and elevate the leg; bear weight as tolerated Apply ice 15-20 minute intervals several times a day Keep it wrapped with MARLON or use a soft ankle splint You may take ibuprofen 600 mg to 800 mg every 6-8 hours. Do not exceed more than 800 mg of ibuprofen per dose. Do not exceed more than 3200 mg ibuprofen in a day. You may take up to 1000 mg Tylenol every 6-8 hours. Do not exceed 1000 mg per dose, do exceed more than 4000 mg of Tylenol in a day. Follow up with your primary care provider or director council on aging as needed in 1-2 weeks specially if pain persist Patient Language: Khmer Prescriptions: No Action trazodone 100 mg tablet buspirone 30 mg tablet buspirone 10 mg tablet losartan 25 mg tablet escitalopram oxalate 20 mg tablet quetiapine 150 mg tablet extended release 24 hr PO Dulera 100-5 mcg/actuation HFA aerosol inhaler INHALATION lurasidone [Latuda] 80 mg tablet lurasidone [Latuda] 20 mg tablet ondansetron HCl [Zofran] 8 mg Tablet 8 mg PO Q12H PRN (Reason: Abdominal Discomfort) dicyclomine 20 mg tablet 20 mg PO BID Qty: 14 0RF ondansetron 4 mg tablet,disintegrating 4 mg PO Q8H PRN (Reason: nausea and vomiting) Qty: 30 0RF cefpodoxime 200 mg tablet 200 mg PO BID Qty: 14 0RF Rx Instructions: must administer with a meal/food ketorolac 10 mg tablet 10 mg PO Q8H Qty: 90 5RF Rx Instructions: maximum total duration of 5 days from all oral, intranasal, or parenteral formulations Follow-up/Referrals: Yoel Jimenez DPM [Physician, Podiatry] [facility],Edie Estrada MD [Primary Care Provider, Unknown] Stand Alone Forms: Work/School Release IP Time of Disposition: 16:27
== END 2024-12-27 16:30 | disposition home or self-care (01) ==
PROVIDERS: PCP Emergency Medicine
DX: M79.671 Pain in right foot (principal)
CPT/HCPCS: 73630; 99213; G0463